=== PATIENT | male | born 1990 | race Caucasian/White ===

== ENCOUNTER 2025-03-19 10:11 | Emergency (ER) | payer OTHER ==
[~2025-03-19] VITALS: Ht 175.3 cm; Wt 59.0 kg
[2025-03-19 10:14] VITALS: TEMP 36.9; O2SAT 96
[2025-03-19] MEDS: KETOROLAC 30MG/ML VIAL IM ONE (11:05)
[2025-03-19] MEDS ORDERED: IBUP-2029 MT (11:34)
[2025-03-19 12:20] VITALS: BP 103/61; PULSE 78; RESP 14; O2SAT 98
== END 2025-03-19 12:57 | disposition home or self-care (01) ==
LOC: ER 10:11
DX: S49.91XA Unspecified injury of right shoulder and upper arm, initial encounter (principal); Z79.899 Other long term (current) drug therapy; Y08.89XA Assault by other specified means, initial encounter; Y93.9 Activity, unspecified; Y92.89 Other specified places as the place of occurrence of the external cause; Y99.8 Other external cause status
CPT/HCPCS: 99283; 73030; 96372; J1885